=== PATIENT | male | born 1975 | race Caucasian/White ===

== ENCOUNTER 2024-08-28 20:00 | Emergency (ER) | payer OTHER, MEDICAID ==
[~2024-08-28] VITALS: Ht 177.8 cm; Wt 86.0 kg
[2024-08-28 20:03] VITALS: O2SAT 97
[2024-08-28] MEDS ORDERED: SODIUM CHLORIDE 0.9% 1,000 ML IV ONE ×2 (21:00)
[2024-08-28] MEDS ORDERED: PANTOPRAZOLE SODIUM 40 MG/VIAL IV STA (21:42)
[2024-08-28 21:43] LABS: CHLORIDE 113 mEq/L (98-107); POTASSIUM 4.6 mEq/L (3.5-5.1); SODIUM 146 mEq/L (136-145)
[2024-08-28 21:44] LABS: CALCIUM 9.6 mg/dL (8.7-10.4); CARBON DIOXIDE 22 mEq/L (21-32)
[2024-08-28 21:49] LABS: BASOPHILS % 1.1 % (0.0-2.0); CREATININE 1.4 mg/dL (0.6-1.3); DIFFERENTIAL COMMENT 0; GLUCOSE 280 mg/dL (70-105); LYMPHOCYTES % 9.3 % (20.0-50.0); MEAN CORPUSCULAR HEMOGLOBIN 30.2 pg (28.0-32.0); MEAN CORPUSCULAR HGB CONC 33.6 g/dL (31.0-37.0); MEAN CORPUSCULAR VOLUME 89.8 fL (80.0-94.0); MEAN PLATELET VOLUME 8.5 fl (7.4-10.4); NEUTROPHILS % 78.6 % (40.0-76.0); PLATELET 107 x1000/uL (130-400); RED BLOOD CELL COUNT 1.49 mill/uL (4.7-6.1); RED CELL DISTRIBUTION WIDTH 16.1 % (11.6-14.6); TROPONIN I HIGH SENSITIVITY 6 ng/L (3.0-53); UREA NITROGEN BLOOD 69 mg/dL (9-23); WHITE BLOOD COUNT 2.9 x1000/uL (4.5-11.0)
[2024-08-28 21:58] LABS: HEMATOCRIT. 13.4 % (42.0-52.0); HEMOGLOBIN. 4.5 g/dL (14.0-18.0)
[2024-08-28 22:46] LABS: INR 1.6
[2024-08-28 23:36] VITALS: BP 156/83; PULSE 103; RESP 17; TEMP 37.16964; O2SAT 100
== END 2024-08-29 00:23 | disposition left against medical advice (07) ==
LOC: ER 20:00 → EDBEDREQTM 22:13 → EDBEDREQSVC 22:13 → EDBEDREQ 22:13 → ER 08-29 00:23
DX: D62 Acute posthemorrhagic anemia (principal); R41.82 Altered mental status, unspecified; D68.9 Coagulation defect, unspecified; D61.818 Other pancytopenia; K92.2 Gastrointestinal hemorrhage, unspecified; E11.9 Type 2 diabetes mellitus without complications; I10 Essential (primary) hypertension; Z98.890 Other specified postprocedural states
CPT/HCPCS: 80048; 83605; 85025; 85610; 85730; 84484; 36415; 71045; 70450; 93005; 99291; J7030; Z7610